=== PATIENT | male | born 1975 | race Caucasian/White ===

== ENCOUNTER 2024-01-04 22:56 | Emergency (ER) | payer BC, OTHER ==
[2024-01-04] MEDS ORDERED: Lidocaine 4% Patch ONE (23:20)
[2024-01-04] MEDS ORDERED: Ketorolac Tromethamine 60 MG/2 ML VIAL ONE (23:23)
[2024-01-05] MEDS ORDERED: HYDROcodone/Acetaminophen 10/325 mg Tablet ONE (00:12)
[2024-01-05] MEDS ORDERED: Aspirin Chewable 81 MG TAB ONE (05:14)
== END 2024-01-05 01:03 | disposition home or self-care (01) ==
LOC: BURERS 22:56
DX: S43.401A Unspecified sprain of right shoulder joint, initial encounter (principal); S20.211A Contusion of right front wall of thorax, initial encounter; W19.XXXA Unspecified fall, initial encounter
CPT/HCPCS: 94799; 96372; J1885